=== PATIENT | female | born 1965 | race Caucasian/White ===

== ENCOUNTER 2016-05-10 10:40 | Emergency (ER) | payer OTHER ==
[~2016-05-10] VITALS: Ht 165.1 cm; Wt 70.3 kg
[~2016-05-10 10:40] MED LIST: ASPIRIN81 M4 PO; AUGMENTIN 875 M1 TAB PO; BLM PO; LIPITOR40 M1 PO; MULTI-DAY VITA1 EACH PO; VITAMIN B COMP1 EACH PO
[2016-05-10 10:46] VITALS: BP 144/89
[2016-05-10] MEDS ORDERED: NAPROSYN500 M1 PO (11:49)
[2016-05-10] MEDS ORDERED: NORCO 5-325 TA1 EACH PO (11:49)
[2016-05-10] MEDS ORDERED: AMOXICILLIN500 M2 PO (11:49)
--- NOTE | 2016-05-10 11:50 | ED THROAT/DENTAL COMPLAINT ---
History of Present Illness General Chief Complaint: Sore Throat, Dental Pain Stated Complaint: MOUTH ABSCESS Source: patient, old records Exam Limitations: no limitations Vital Signs & Intake/Output Vital Signs & Intake/Output Vital Signs Date Time Temp Pulse Resp B/P Pulse O2 O2 Flow FiO2 Ox Delivery Rate 05/10 1046 98.1 96 16 144/89 99 Room Air Allergies Coded Allergies: NO KNOWN ALLERGIES (04/27/16) Reconcile Medications Amoxicillin 500 MG CAPSULE 1 CAP PO TID DENTAL INFECTION Aspirin (Aspirin*) 81 MG TAB.CHEW 1 TAB PO DAILY [facility] Atorvastatin Calcium (Lipitor) 40 MG TABLET 1 TAB PO DAILY [facility] Hydrocodone/Acetaminophen ([place] 5-325 Tablet) 5 MG-325 MG TABLET 1 TAB PO Q4- 6 PRN PRN PAIN Multivitamin (Multi-Day Vitamins) 1 EACH TABLET 1 TAB PO DAILY SUPPLEMENT ( Reported) Naproxen (Naprosyn) 500 MG TABLET 1 TAB PO BID PRN PAIN/INFLAMMATION Vitamin B Complex 1 EACH CAPSULE 1 CAP PO DAILY SUPPLEMENT (Reported) Triage Note: PT STATES SHE HAS AN ABCESS TOOTH CALLED HER DENTIST AND WAS TOLD TO COME TO ED. Triage Nurses Notes Reviewed? yes HPI: 51-year-old female with left lower dental pain for last 2 days, increased swelling today, she called her dentist who told her to come to the ER for further evaluation. She has history of carious tooth in that side. She denies any fever or flulike illness, the pain is moderate to severe and throbbing, there is no swelling spreading into the high region, no redness. No treatment thus far except for Motrin without relief, last dose was 3 hours prior to my evaluation. No history of dental abscesses or infections (CAIO MAKI) Past History Travel History Traveled to [place] past 21 day No Medical History Any Pertinent Medical History? 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 No (CAIO MAKI) Review of Systems Review of Systems Constitutional: Reports: see HPI. EENTM: Reports: see HPI. Respiratory: Reports: no symptoms. Cardiovascular: Reports: no symptoms. GI: Reports: no symptoms. Genitourinary: Reports: no symptoms. Musculoskeletal: Reports: no symptoms. Skin: Reports: no symptoms. Neurological/Psychological: Reports: no symptoms. Hematologic/Endocrine: Reports: no symptoms. Immunologic/Allergic: Reports: no symptoms. All Other Systems: Reviewed and Negative (CAIO MAKI) Physical Exam Physical Exam General Appearance: well developed/nourished Mouth/Throat: pharynx normal Comments: Well-developed well-nourished no apparent distress. HEENT: Left-sided facial swelling is mild to moderate, lower mandible region. There is a significantly carious premolar lower left with swelling to the adjacent inferior gum region. No fluctuance., extraocular motion intact Neck: Supple, no lymphadenopathy Back: Nontender Respiratory: No respiratory distress Extremities: No edema, full range of motion Neuro: Alert and oriented x3 Psych: Mood affect normal, normal memory normal judgment. Skin: Warm and dry, no rash on exposed skin Core Measures ACS in differential dx? No Severe Sepsis Present: No Septic Shock Present: No (CAIO MAKI) Progress Differential Diagnosis: aspirated tooth, carious tooth, epiglottitis, Ludwigs angina, meningitis, odontogenic abscess, hi-tonsillar abscess, pharyngeal for. body, stomatitis/gingivitis, strep pharyngitis, tooth fracture Plan of Care: Symptoms have only been going on for 2 days and there is no definitive signs of abscess, we will treat her with antibiotics and pain medication and recommend close follow-up with dentist. She will return with worsening signs infection and she may need a needle aspiration at that time (CAIO MAKI) Departure Departure Disposition: HOME OR SELF CARE Condition: Stable Clinical Impression Primary Impression: Infected dental caries Referrals: PERNELL GUZMAN (PCP/Family) Referred to [facility] as new patient No Additional Instructions: Take antibiotics for infection, Naprosyn for inflammation and pain and [place] for severe pain. Follow-up with dentist this week. Return to the ER with your feeling fever or flulike illness, if the redness or swelling is spreading to the cheek or around the eye Departure Forms: Customer Survey General Discharge Information Prescriptions: Current Visit Scripts Amoxicillin 1 CAP PO TID #30 CAP Hydrocodone/Acetaminophen ([place] 5-325 Tablet) 1 TAB PO Q4-6 PRN PRN PAIN #15 TAB Naproxen (Naprosyn) 1 TAB PO BID PRN PAIN/INFLAMMATION #14 TAB (CAIO MAKI) PA/TERMINAL CARMAN Co-Sign Statement Statement: ED Attending supervision documentation- [] I saw and evaluated the patient. I have also reviewed all the pertinent lab results and diagnostic results. I agree with the findings and the plan of care as documented in the PA's/TERMINAL CARMAN's documentation. [X] I have reviewed the ED Record and agree with the PA's/TERMINAL CARMAN's documentation. [] Additions or exceptions (if any) to the PAs/TERMINAL CARMAN's note and plan are summarized below: [] (CADEN PEDROZA,KIMANI)
== END 2016-05-10 12:08 ==
LOC: ERH 10:40
DX: K02.9 Dental caries, unspecified (principal)